=== PATIENT | male | born 1975 | race African-American/Black ===

== ENCOUNTER 2021-07-25 14:14 | Emergency (ER) | payer BC, SELFPAY ==
[~2021-07-25] VITALS: Ht 172.7 cm; Wt 68.0 kg
[2021-07-25] MEDS ORDERED: TC1U15 TP (14:49)
[2021-07-25 15:00] VITALS: BP 128/74
[2021-07-25] MEDS ORDERED: DEXAMETHASONE 4MG TABLET PO NR (15:00)
== END 2021-07-25 15:00 | disposition home or self-care (01) ==
LOC: ER 14:52
DX: R21 Rash and other nonspecific skin eruption (principal); Z90.49 Acquired absence of other specified parts of digestive tract
CPT/HCPCS: 99283; J8540

== ENCOUNTER 2022-02-07 09:11 | Emergency (ER) | payer BC ==
[~2022-02-07] VITALS: Ht 172.7 cm; Wt 70.0 kg
[~2022-02-07 09:11] MED LIST: TC1U15 TP
[2022-02-07 09:22] VITALS: BP 155/91
== END 2022-02-07 11:07 | disposition home or self-care (01) ==
LOC: ER 09:11
DX: R68.89 Other general symptoms and signs (principal); Z90.49 Acquired absence of other specified parts of digestive tract
CPT/HCPCS: 93005; 99283